=== PATIENT | female | born 1955 | race Caucasian/White ===

== ENCOUNTER → 2016-11-26 | Outpatient (CLI) | payer OTHER ==
--- NOTE | 2016-11-26 17:29 | REP ---
MR THORACIC SPINE WITHOUT AND WITH CONTRAST: HISTORY: Breast carcinoma. CONTRAST: ProHance 14.6 mL. A small left paracentral disc protrusion is present at the T6-7 level. There is minimal effacement of the thecal sac without spinal cord compression. The T6 neural foramina are patent. A small left paracentral disc protrusion is present at the T7-8 level. There is minimal effacement of the thecal sac without spinal cord compression. The T7 neural foramina are patent. There is no other disc bulge or herniation. The remaining neural foramina are patent. A small syrinx 1.6 cm in width is present in the spinal cord at the T6-7 level. The spinal cord is normal in size. Multiple areas of decreased signal intensity on T1 weighted images are present in the thoracic vertebral bodies and neural arch. There is minimal focal enhancement at the T6 and T9 levels. The vertebral bodies are normal in height. There is no paravertebral or epidural component. IMPRESSION: 1. Small disc protrusions at the T6-7 and T7-8 levels without spinal cord compression. 2. Small spinal cord syrinx at the T6-7 level. 3. There are multiple metastatic lesions throughout the thoracic vertebral bodies and neural arch. There is no spinal canal compromise. Signed by Daniel Lainez MD 11/26/2016 05:30 P
--- NOTE | 2016-11-26 17:46 | REP ---
MR LUMBAR SPINE WITHOUT AND WITH CONTRAST: HISTORY: Breast carcinoma. CONTRAST: ProHance 14.6 mL. COMPARISON: 02/01/2016 Decreased signal intensity on T2 weighted images is present in the lumbar intervertebral discs. The discs are decreased in height. These findings are consistent disc degeneration. There is no disc bulge or herniation at the L1-2 level. The L1 nerves exit the neural foramina without compression. A diffuse disc bulge is present at the L2-3 level. There is minimal compression of the thecal sac. The L2 nerves exit the neural foramina without compression. A diffuse disc bulge is present at the L3-4 level. There is minimal compression of the thecal sac. There is hypertrophy of the posterior articulating facets. The L3 nerves exit the neural foramina without compression. A diffuse disc bulge and small central disc protrusion are present at the L4-5 level. There is minimal compression of the thecal sac. There is hypertrophy of the posterior articulating facets. The L4 nerves exit the neural foramina without compression . A diffuse disc bulge is present at the L5-S1 level. This abuts the thecal sac. There is hypertrophy of the posterior articulating facets. There are 5 mm of grade 1 spondylolisthesis of L5 on S1 with associated L5 pars defects. There is compression of the L5 nerves in the neural foramina. The conus medullaris is normal in appearance terminating at the level of the L1 vertebral body. Areas of decreased signal intensity on T1 weighed images are present in the visualized thoracic and lumbar vertebral bodies, sacrum and iliac bones and neural arch. There is minimal enhancement of several lesions with contrast. These represent metastases. The vertebral bodies are normal in height. There is no paravertebral or epidural extension. IMPRESSION: 1. Diffuse disc bulges at the L2-3 and L3-4 levels with minimal thecal sac compression. 2. Diffuse disc bulge and small central disc protrusion at the L4-5 level with minimal thecal sac compression. 3. Diffuse disc bulge at the L5-S1 level. This abuts the thecal sac. There is grade 1 spondylolisthesis of L5 on S1 with associated L5 pars defects. There is compression of the L5 nerves in the neural foramina. 4. There are multiple metastatic lesions in the visualized thoracic and lumbar vertebral bodies, sacrum, iliac bones, and neural arch. There is no spinal canal compromise. Signed by Daniel Lainez MD 11/26/2016 06:07 Bibi
== END ==
LOC: M RAD 15:28
PROVIDERS: ATTEND Internal Medicine
DX: C50.919 Malignant neoplasm of unspecified site of unspecified female breast (principal); C79.51 Secondary malignant neoplasm of bone; M51.26 Other intervertebral disc displacement, lumbar region; M51.24 Other intervertebral disc displacement, thoracic region

== ENCOUNTER → 2017-01-07 | Outpatient (CLI) | payer OTHER ==
--- NOTE | 2017-01-07 11:16 | REP ---
CERVICAL SPINE, SEVEN VIEWS: HISTORY: Breast carcinoma. The cervical spine is visualized from C1-2 to C6-7 level in the lateral radiographs. There is no acute fracture. The C3-4 through C6-7 intervertebral discs are decreased in height consistent with disc degeneration. Osteophytes are present on C3 through C6. There is narrowing of the C3 through C6 neural foramina secondary to uncinate process hypertrophy. There are 3 mm of anterior subluxation of C3 on C4. This increased to 4 mm with flexion and returns to 3 mm with extension. The C4 and C5 vertebral bodies are slightly sclerotic in appearance. This may be secondary to degenerative change, however, the possibility of metastasis cannot be excluded. Impression: There is cervical spondylosis at the C3-4 through C6-7 levels. Signed by Daniel Lainez MD 01/07/2017 11:18 A
--- NOTE | 2017-01-07 11:22 | REP ---
LUMBAR SPINE, SEVEN VIEWS: HISTORY: Breast carcinoma. COMPARISON: 01/22/2016. There is no acute fracture. The L2-3 through L5-S1 intervertebral discs are decreased in height consistent with disc degeneration. Osteophytes are present at L2 through L5. There is narrowing of the L4-5 and L5-S1 facet joints. There are 6 mm of grade 1 spondylolisthesis of L5 on S1. This increases to 8 mm with flexion and reduces to 3 mm with extension. There appear to be L5 pars defects. Blastic metastases are present in the visualized vertebral bodies, sacrum and iliac bones. IMPRESSION: Degenerative change as described above. There are diffuse blastic metastases throughout the visualized bone structure. Signed by Daniel Lainez MD 01/07/2017 11:24 A
--- NOTE | 2017-01-07 18:49 | REP ---
[facility] the whole body PET CT scan: Scan is performed from skull base to the upper thighs. The patient has a history of breast carcinoma and known multiple skeletal metastases. Comparisons are the recent MRI of the thoracic spine and MRI of the lumbar spine both dated 11/26/2016. There are multiple lytic skeletal metastases, best visualized on the accompanying CT scan, involving the cervical spine, thoracic spine, lumbar spine, sacrum, iliac wings, ischii and proximal femurs. Additionally, there is focal uptake in an inferior right rib anteriorly and in an upper left rib laterally. In the spine, uptake is identified in multiple vertebral bodies, however this is not hypermetabolic. The absence of hypermetabolic foci may be secondary to marked bone mineral loss resulting in decreased radiotracer deposition. Neck and supraclavicular areas: There are no other foci other than the cervical spine. No soft tissue uptake. Chest: There are no other foci other than the previously described ribs and thoracic spine. There is no uptake in the lung sr, trini, mediastinum or in right or left axilla. Abdomen, pelvis and upper thighs: There is no r uptake other than in the lumbar spine, pelvis and proximal femurs. There is nonspecific bowel uptake. There is no retroperitoneal or mesenteric adenopathy or uptake. No hepatic or adrenal uptake. Impression: Diffuse skeletal metastases identified to best advantage on the CT accompanying the PET scan. No hypermetabolic foci are identified, likely because of bone loss secondary to the lytic lesions resulting in decreased radiotracer deposition. No lymph node or soft tissue hypermetabolic foci are identified. The study is performed with 8.7 mCi of F 18 FDG. Signed by Duc Rosa MD 01/07/2017 06:40 P
== END ==
LOC: M RAD 10:12
PROVIDERS: ATTEND Neurological Surgery
DX: C79.51 Secondary malignant neoplasm of bone (principal); M51.36 Other intervertebral disc degeneration, lumbar region; M47.892 Other spondylosis, cervical region; Z85.3 Personal history of malignant neoplasm of breast

== ENCOUNTER → 2017-01-29 | Outpatient (CLI) | payer OTHER ==
--- NOTE | 2017-02-13 00:28 | ECWPNPC ---
PATIENT NAME: DAYANA MARTINEZ : 1955 GENDER: FEMALE VISIT DATE: 01/29/2017 DISCHARGE DATE: 01/29/17 1253 VISIT LOCKED DATE TIME: PHYSICIAN: AMITA FULLER RESOURCE: AMITA FULLER REASON FOR APPOINTMENT 1. LOW BACK/PERIPHERAL NEUROPATHY HISTORY OF PRESENT ILLNESS NEW PATIENT CONSULT: WHEN DID YOUR PAIN FIRST START? . BRIEFLY DESCRIBE HOW YOUR PAIN STARTED? . HOW DOES YOUR PAIN CHANGE WITH TIME? . DOES YOUR PAIN AWAKEN YOU FROM SLEEP? . HOW MANY HOURS OF SLEEP DO YOU NORMALLY GET? . ANY DIAGNOSTIC TESTING? . FACILITY WHERE TESTS WERE DONE? ____. PAIN TREATMENT TREATMENT YES CANCER HAVE YOU EVER HAD ANY TYPE OF CANCER?YES BREAST WITH BONE METS CANCER TREATMENT?CHEMOTHERAPY, SURGERY NO. PAIN SCREENING: PATIENT HAS A COMPLAINT OF ACUTE OR CHRONIC PAIN :YES FALL RISK SCREENING: SCREENING :NO FALLS IN THE PAST YEAR ZAMBRANO INVENTORY: QUESTIONNAIRE ASSESSEDYES SCORE VALUE CALCULATED YES SCORE: DENIES SUICIDAL OR HOMICIDAL IDEATION. DOES NOTE SOME SITUATIONAL DEPRESSION TODAY'S VISIT: NOTES: REFERRED TODAY BY DR ALLEN FOR LOW BACK PAIN. NOTES AFTER 5 MIN OF WALKING NOTES SHARP BURNING PAIN IN LOWBACK WITH RADIATION ACROSS TO RIGHT HIP AND LEG. IF STANDS TOO LONG, FEET GOES NUMB R>L. HAD SPREAD OF BREAST CANCER TO BONE - 2003 - HAS BEEN ON CHEMO , SEE DR ESPINOZA AT [facility]. 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 K DID AN SIJ WITH IMPROVEMENT FOR 1 DAY. HAD PT 2014 - MADE WORSE. HEATS HELPS. SLEEP IS FAIR WITH PAIN MEDS. MEDS TAKE EDGE OFF WHEN ITS AT ITS WORST. CURRENT MEDICATIONS TAKING CALCIUM + D [address]719 MG-UNIT TABLET 1 TABLET WITH FOOD ORALLY ONCE A DAY TAKING SYMBICORT 80-4.5 MCG/ACT AEROSOL 2 PUFFS INHALATION TWICE A DAY TAKING HYDROCODONE-ACETAMINOPHEN 7.5-325 MG TABLET 1 TABLET NEEDED ORALLY EVERY 6 HRS TAKING BLOOD PRESSURE MONITOR - MISCELLANEOUS DIRECTED ONCE DAILY TAKING WHEELCHAIR - MISCELLANEOUS DIRECTED DX- BACK PAIN/HIP PAIN/METASTATIC BREAST CANCER TAKING VENTOLIN HFA 108 (90 BASE) MCG/ACT AEROSOL SOLUTION 2 PUFFS NEEDED INHALATION EVERY 4 HRS TAKING MELOXICAM 15 MG TABLET 1 TABLET ORALLY ONCE A DAY TAKING OMEPRAZOLE 40 MG CAPSULE DELAYED RELEASE 1 CAPSULE ORALLY ONCE A DAY TAKING DULOXETINE HCL 30 MG CAPSULE DELAYED RELEASE PARTICLES 1 CAPSULE ORALLY TWICE A DAY TAKING BIOTIN 5000 5 MG CAPSULE 1 CAPSULE ORALLY ONCE A DAY TAKING GABAPENTIN 300 MG CAPSULE 1 CAPSULE ORALLY THREE TIMES A DAY TAKING ECHINACEA 400 MG CAPSULE ORALLY TAKING XELODA 500 MG TABLET ORALLY BID NOT-TAKING PREMARIN 0.625 MG TABLET 1 TABLET ORALLY DAILY NOT-TAKING MORPHINE SULFATE 30 MG TABLET EXTENDED RELEASE 12 HOUR 1 TABLET NEEDED ORALLY TWICE A DAY NEEDED NOT-TAKING AMLODIPINE 10 MG TABLET 1/2 TAB ORALLY ONCE A DAY NOT-TAKING METHOCARBAMOL 500 MG TABLET 2 TABLETS ORALLY EVERY 6HRS/PRN NOT-TAKING NORTRIPTYLINE HCL 25 MG CAPSULE 2 CAPSULE ORALLY ONCE A DAY QHS NOT-TAKING MULTIVITAMINS TABLET DIRECTED ORALLY NOT-TAKING VITAMIN C 500 MG CAPSULE ORALLY NOT-TAKING VITAMIN E 400 UNIT CAPSULE 1 CAPSULE ORALLY ONCE A DAY MEDICATION LIST REVIEWED AND RECONCILED WITH THE PATIENT PAST MEDICAL HISTORY HTN BREAST CANCER OVARIAN CYSTS ASTHMA HYPERLIPIDEMIA MULTINODULAR GOITER ALLERGIES LATEX (FOR ALLERGY USE ONLY): RASH: ALLERGY SURGICAL HISTORY HYSTERECTOMY 1976 BILATERAL MASTECTOMY 2003 BILATERAL OVERY REMOVAL 2004 FAMILY HISTORY FATHER: 64 YRS, PROSTATE CANCER MOTHER: ALIVE, HEALTHY SIBLINGS: BROTHER # 1 DUE TO BRAIN CANCER AGE 53 BROTHER # 2 LIVING AGE 63, BERRETS DISEASE SISTER # 1 AGE 42 DUE TO LIVER FAILURE SISTER # 2 LIVING HEALTHY SON(S): ALIVE DAUGHTER(S): 36 YRS, DUE TO COLON CANCER AGE 36 PATERNAL UNCLE: 3 UNCLES WITH PROSTATE CANCER PATERNAL AUNT: 2 AUNTS WITH BREAST CANCER MATERNAL UNCLE: DUE TO CANCER UNKNOWN TYPE 2 BROTHER(S) , 2 SISTER(S) . 1 SON(S) , 1 DAUGHTER(S) . SOCIAL HISTORY GENERAL: TOBACCO USE ARE YOU A:NONSMOKER PAIN CLINIC PFS, CLERGY, PUBLIC HEALTH REFERRALS CLERGY REFERRAL NEEDED?NO WAS THE PROVIDER NOTIFIED OF ANY PERTINENT INFO?NO PFS REFERRAL NEEDED?NO PUBLIC HEALTH REFERRAL NEEDED?NO PATIENT: ____. HOSPITALIZATION/MAJOR DIAGNOSTIC PROCEDURE SURGICALY RELATED REVIEW OF SYSTEMS CONSTITUTIONAL: ANY CHANGE IN YOUR MEDICAL CONDITION? NO . CHILLS NO . FEVER NO . INFECTION: DO YOU HAVE NEW INFECTIONS? NO - RECENT STREP THROAT TX W ABX . DO YOU HAVE HISTORY OF MRSA? NO . MUSCULOSKELETAL: ANY NEW PATTERNS OF PAIN OR NUMBNESS? NO . SYTEMIC LUPUS NO . GASTROENTEROLOGY: ANY NEW CHANGE IN BOWEL CONTROL? NO . BARRETTS ESOPHAGUS NO . CIRRHOSIS NO . HEPATITIS NO . LIVER FAILURE NO . ACID REFLUX NO . UNEXPLAINED WEIGHT LOSS NO . GENITOURINARY: ANY NEW CHANGE IN BLADDER CONTROL? NO . IS THERE A CHANCE YOU COULD BE ? NO . HEMATOLOGY/LYMPH: DO YOU TAKE ANY BLOOD THINNERS? (FOR EXAMPLE- COUMADIN, PLAVIX, AGGRENOX, PLATEL, PRADAXA, OR XARELTO) NO . WHEN WAS YOUR LAST DOSE? DATE: TIME: . LOW PLATELET COUNT NO . SICKLE CELL DISEASE NO . VON WILLIEBRANDS NO . FACTOR V LEIDEN NO . THALLASEMIA NO . ANEMIA NO . EASY BRUISING YES - UNCLEAR REASON . NEUROLOGY: HAVE YOU FALLEN IN THE PAST 6 MONTHS? NO . ANY NEW EXTREMITY NUMBNESS OR WEAKNESS? NO . HEAD INJURY NO . DEMENTIA NO . CEREBRAL PALSY NO . MULTIPLE SCLEROSIS NO . DIZZINESS NO . HEADACHE NO . STROKES NO . VERTIGO NO . CARDIOLOGY: DO YOU HAVE A PACEMAKER OR DEFIBRILLATOR? NO . ANGINA NO . HEART ATTACK NO . HEART SURGERY NO . CONGESTIVE HEART FAILURE/FLUID OVERLOAD NO . CHEST PAIN NO . HIGH BLOOD PRESSURE NO . IRREGULAR HEART BEAT NO . RESPIRATORY: HAVE YOU BEEN SICK IN THE PAST WEEK? NO . FEVER NO . FLU LIKE SYMPTOMS? NO . CPAP NO . BYPAP NO . ASTHMA NO . EMPHYSEMA NO . CHRONIC LUNG DISEASES YES . SHORTNESS OF BREATH ON EXERTION NO . DO YOU USE ANY TYPE OF TOBACCO (SMOKE, SMOKELESS, CHEW)? NO . COUGH NO . SNORING NO . INTEGUMENTARY: DO YOU HAVE ANY RASHES OR OPEN SORES? NO . ALLERGIC/IMMUNO: ARE YOU ALLERGIC TO SHELLFISH OR IV DYE? NO . ANY NEW ALLERGIES? NO . PSYCHIATRIC: DO YOU HAVE THOUGHTS OF HURTING YOURSELF OR SOMEONE ELSE? NO . ARE YOU ABUSED, NEGLECTED, OR IN AN UNSAFE ENVIRONMENT? NO . ENDOCRINOLOGY: ARE YOU DIABETIC? NO . THYROID DISORDER YES - SAW DR Asif SANCHEZ FOR NODULES, NO MEDS . OTHER: DO YOU NEED ANY PRESCRIPTIONS? NO . IF YES, PLEASE LIST: ____ . ANY NEW PROBLEMS WITH YOUR MEDICATIONS? NO . WHEN DID YOU LAST EAT? ____ . WHEN DID YOU LAST DRINK? ____ . WHAT DID YOU LAST DRINK? ____ . NAME OF PERSON DRIVING YOU HOME? ____ . DO YOU HAVE ANY OTHER QUESTIONS OR CONCERNS NO . PSYCHOLOGY: DEPRESSION SITUATIONAL DEPRESSION BUT REPORTS POSITIVE ATTITUDE . REVIEWED BY: PROVIDER: AMITA ZAMAN . VITAL SIGNS WT 164 LBS, HT 5'5.5", BMI 26.87 INDEX, BP 138/71 MM HG, HR 108 /MIN, RR 18 /MIN, TEMP 99.2 F, OXYGEN SAT % 94%, NA INITIALS AW 1128, REVIEWED BY: KG. EXAMINATION GENERAL EXAMINATION: GENERAL APPEARANCE:WELL DRESSED, PLEASANT TO INTERACT WITH. USES WHEELCHAIR BUT IS ABLE TO WALK TO THE BATHROOM. PSYCHALERT , ORIENTED X 3 , APPROPRIATE MOOD AND AFFECT , GOOD EYE CONTACT. HEENT:NORMOCEPHALIC, NEW RETURN OF FACIAL AND SCALP HAIR POST CHEMO. NO LYMPHADENOPATHY, NO THYROMEGLY. LUNGS:BREATH SOUNDS CLEAR, NO WHEEZES, RALES OR RHONCHI. HEART:NO CAROTID BRUITS, NORMAL S1S2, NO MURMURS, CLICK OR RUBS. MUSCULOSKELETAL:SLOW TO RISE TO STANDING POSITION. POSTURE UPRIGHT.GAIT, WIDEBASED, STEPPING IN NATURE. POINT TENDERNESS OVER LUMBAR SPINOUS PROCESSES AND ACROSS THE LUMBOSACRAL AXIS. , TRIGGER POINTS AND TIGHT FIBROUS BANDS IDENTIFIED ACROSS THE SACRUM. TENDER WITH PALPATION OVER LEFT SACRAL ILIAC JOINT. POSITIVE FANNIE SIGN ON LEFT. , MUSCLE STRENGTH TESTING 5/5 BILATERAL UPPER AND LOWER EXTREMITIES. NO FOOT DROP. . EXTREMITIES:TRACE EDEMA BILATERAL LOWER EXTREMITIES.. NEUROLOGIC EXAM:CN'S II-XII GROSSLY INTACT DTR'S 1+ BILATERAL UPPER AND LOWER EXTREMITES. PATCHY DYSESTHESIA OVER BILATERAL LOWWER EXTREMITIES. DIAGNOSTIC TESTS REVIEWEDPET SCAN -WHOLE BODY- COMPLETED 01/07/17. DEMOSTRATES DIFFUSE SKELETAL METASRASES IDENTIFIED TO BEST ADVANTAGE ON THE CT ACCOMPANYING THE PET SCAN. NO HYPERMETABOLIC FOCI ARE IDENTIFIED, LIKELY BECAUSE OF BONE LOSS SECONDARY TO THE LYTIC LESIONS RESULTING IN DECREASED RADIOTRACER DEPOSITION. NO LYMPH NODE OR HYPERMETABOLIC FOCI ARE IDENTIFIED. CT OF LUMBAR SPINE WAS COMPLETED ON 01/07/17. DEGENERATIVE CHANES NOTES L2-3 THROUGH L5-S1 WITH OSTEOPHYTES PRESENT AT L2 THROUGH L5. THERE IS 6 MM OF SPONDYLITHESIS OF L5 ON S1. THERE APEAR TO BE PARS DEFECTS.. BLASTIC METASTASES ARE PRESENT IN THE VISUALIZED VERTEBRAL BODIES, SACRUM AND ILIAC BONES.CERVICAL SPINE XRAYS COMPLETED ON 01/07/17: CERVICAL SPONDYLOSIS C3-4 THROUGH C6-7. THERE IS 3 MM OF ANTERIOR SUBLUXATION OF C3 ON C4.. 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 REVIEWED TREATMENT OPTION WITH THE PATIENT - DID DISCUSS WITH HER THAT INTERVENTIONAL TREATMENT WHICH ACCESS THE EPIDURAL SPACE WOULD NOT BE PURSUED DUE TO FEAR OF "SEEDING" CANCEROUS CELLS TO THIS REGION. PROCEDURE CODES FA211 ESTABILISHED PATIENT [facility] CHARGE [id number] INJECT SACROILIAC JOINT DISPOSITION & COMMUNICATION FOLLOW UP AFTER INJECTION (REASON: CHECK AUTH FOR BILAT SIJ - NEED OK TO DO INJECTIONS FROM DR ESPINOZA AT [facility] ) ELECTRONICALLY SIGNED BY AGGIE NELSON ON 02/12/2017 AT 04:13 PM EDT DISCLAIMER : THIS IS A VISIT SUMMARY EXTRACTED FROM THE [facility] CHART. IT IS NOT A COPY OF THE [facility] PROGRESS NOTE. VARGAS
== END ==
LOC: M PAIN 11:20
PROVIDERS: ATTEND Nurse Practitioner Family
DX: M54.5 Low back pain (principal); M46.1 Sacroiliitis, not elsewhere classified; M47.26 Other spondylosis with radiculopathy, lumbar region; I10 Essential (primary) hypertension; J45.909 Unspecified asthma, uncomplicated; Z91.040 Latex allergy status; Z79.891 Long term (current) use of opiate analgesic; Z79.899 Other long term (current) drug therapy; E78.5 Hyperlipidemia, unspecified; Z85.3 Personal history of malignant neoplasm of breast; Z92.21 Personal history of antineoplastic chemotherapy

== ENCOUNTER → 2017-03-20 | Outpatient (CLI) | payer OTHER ==
[~2017-03-20] MED LIST: BUPIVACAINE HCL 0.25% 30 ML VIAL As Ordered ONE; ISOVUE-M 300 61% 15ML VIAL (Q9967) As Ordered ONE; LIDOCAINE 1% SDV INJ 30 ML VIAL As Ordered ONE; TRIAMCINOLONE ACETONIDE SUSP 40 MG/ML VIAL (J3301) As Ordered ONE; diazePAM 5 MG TAB As Ordered ONE; oxyCODONE 5MG TAB As Ordered ONE
--- NOTE | 2017-03-20 15:28 | REP ---
Partial SI joint series: Single view. History: SI joint injection for pain. 23 seconds of fluoroscopy time is reported. Findings: A single fluoroscopically obtained last image hold spot radiograph of an SI joint document needle position and contrast injection associated with injection procedure. No laterality markers. Signed by Aneesh Belcher MD 03/20/2017 04:28 P
--- NOTE | 2017-03-29 23:46 | ECWPNPC ---
PATIENT NAME: DAYANA MARTINEZ : 1955 GENDER: FEMALE VISIT DATE: 03/20/2017 DISCHARGE DATE: 03/20/17 1511 VISIT LOCKED DATE TIME: PHYSICIAN: CHRISTIANO BRIONES RESOURCE: CHRISTIANO BRIONES REASON FOR APPOINTMENT 1. SIJ HISTORY OF PRESENT ILLNESS HISTORY OF PRESENT ILLNESS: PAIN THE PATIENT DESCRIBES THE PAIN... FALL RISK SCREENING: SCREENING :NO FALLS IN THE PAST YEAR CURRENT MEDICATIONS TAKING CALCIUM + D 02055-781 MG-UNIT TABLET 1 TABLET WITH FOOD ORALLY ONCE A DAY, NOTES: 03/19/17@1400 TAKING SYMBICORT 80-4.5 MCG/ACT AEROSOL 2 PUFFS INHALATION TWICE A DAY, NOTES: HASN'T USED IN AWHILE TAKING HYDROCODONE-ACETAMINOPHEN 7.5-325 MG TABLET 1 TABLET NEEDED ORALLY EVERY 6 HRS, NOTES: 0600 TAKING BLOOD PRESSURE MONITOR - MISCELLANEOUS DIRECTED ONCE DAILY TAKING WHEELCHAIR - MISCELLANEOUS DIRECTED DX- BACK PAIN/HIP PAIN/METASTATIC BREAST CANCER TAKING VENTOLIN HFA 108 (90 BASE) MCG/ACT AEROSOL SOLUTION 2 PUFFS NEEDED INHALATION EVERY 4 HRS, NOTES: HASN'T USED IN AWHILE TAKING DULOXETINE HCL 30 MG CAPSULE DELAYED RELEASE PARTICLES 1 CAPSULE ORALLY TWICE A DAY, NOTES: 0600 TAKING BIOTIN 5000 5 MG CAPSULE 1 CAPSULE ORALLY ONCE A DAY, NOTES: 0600 TAKING GABAPENTIN 300 MG CAPSULE 1 CAPSULE ORALLY THREE TIMES A DAY, NOTES: 0600 TAKING ECHINACEA 400 MG CAPSULE ORALLY , NOTES: 03/19/17@2000 TAKING XELODA 500 MG TABLET ORALLY BID, NOTES: 0600 TAKING OMEPRAZOLE 40 MG CAPSULE DELAYED RELEASE 1 CAPSULE ORALLY ONCE A DAY, NOTES: 0600 TAKING MELOXICAM 15 MG TABLET 1 TABLET ORALLY ONCE A DAY, NOTES: 0600 NOT-TAKING PREMARIN 0.625 MG TABLET 1 TABLET ORALLY DAILY NOT-TAKING MORPHINE SULFATE 30 MG TABLET EXTENDED RELEASE 12 HOUR 1 TABLET NEEDED ORALLY TWICE A DAY NEEDED NOT-TAKING AMLODIPINE 10 MG TABLET 1/2 TAB ORALLY ONCE A DAY NOT-TAKING METHOCARBAMOL 500 MG TABLET 2 TABLETS ORALLY EVERY 6HRS/PRN NOT-TAKING NORTRIPTYLINE HCL 25 MG CAPSULE 2 CAPSULE ORALLY ONCE A DAY QHS NOT-TAKING MULTIVITAMINS TABLET DIRECTED ORALLY NOT-TAKING VITAMIN C 500 MG CAPSULE ORALLY NOT-TAKING VITAMIN E 400 UNIT CAPSULE 1 CAPSULE ORALLY ONCE A DAY MEDICATION LIST REVIEWED AND RECONCILED WITH THE PATIENT PAST MEDICAL HISTORY HTN BREAST CANCER OVARIAN CYSTS ASTHMA HYPERLIPIDEMIA MULTINODULAR GOITER ALLERGIES LATEX (FOR ALLERGY USE ONLY): RASH: ALLERGY REVIEW OF SYSTEMS CONSTITUTIONAL: ANY CHANGE IN YOUR MEDICAL CONDITION? NO . CHILLS NO . FEVER NO . INFECTION: DO YOU HAVE NEW INFECTIONS? NO . DO YOU HAVE HISTORY OF MRSA? NO . MUSCULOSKELETAL: ANY NEW PATTERNS OF PAIN OR NUMBNESS? NO . GASTROENTEROLOGY: ANY NEW CHANGE IN BOWEL CONTROL? NO . GENITOURINARY: ANY NEW CHANGE IN BLADDER CONTROL? NO . IS THERE A CHANCE YOU COULD BE ? NO . HEMATOLOGY/LYMPH: DO YOU TAKE ANY BLOOD THINNERS? (FOR EXAMPLE- COUMADIN, PLAVIX, AGGRENOX, PLATEL, PRADAXA, OR XARELTO) NO . WHEN WAS YOUR LAST DOSE? DATE: TIME: . NEUROLOGY: HAVE YOU FALLEN IN THE PAST 6 MONTHS? NO . ANY NEW EXTREMITY NUMBNESS OR WEAKNESS? NO . CARDIOLOGY: DO YOU HAVE A PACEMAKER OR DEFIBRILLATOR? NO . RESPIRATORY: HAVE YOU BEEN SICK IN THE PAST WEEK? NO . FEVER NO . FLU LIKE SYMPTOMS? NO . COUGH NO . INTEGUMENTARY: DO YOU HAVE ANY RASHES OR OPEN SORES? NO . ALLERGIC/IMMUNO: ARE YOU ALLERGIC TO SHELLFISH OR IV DYE? NO . ANY NEW ALLERGIES? NO . PSYCHIATRIC: DO YOU HAVE THOUGHTS OF HURTING YOURSELF OR SOMEONE ELSE? NO . ARE YOU ABUSED, NEGLECTED, OR IN AN UNSAFE ENVIRONMENT? NO . ENDOCRINOLOGY: ARE YOU DIABETIC? NO . OTHER: DO YOU NEED ANY PRESCRIPTIONS? NO . IF YES, PLEASE LIST: ____ . ANY NEW PROBLEMS WITH YOUR MEDICATIONS? NO . WHEN DID YOU LAST EAT? ____0600 . WHEN DID YOU LAST DRINK? ____1000 . WHAT DID YOU LAST DRINK? ____WATER . NAME OF PERSON DRIVING YOU HOME? ____TIM RASO . DO YOU HAVE ANY OTHER QUESTIONS OR CONCERNS NO . REVIEWED BY: PROVIDER: . VITAL SIGNS WT 172.0 LBS, HT 5'5.5", BMI 28.18 INDEX, BP 132/67 MM HG, HR 96 /MIN, RR 16 /MIN, TEMP 97.4 F, OXYGEN SAT % 96%, NA INITIALS TL 1327, REVIEWED BY: VD. ASSESSMENTS SACROILIITIS, NOT ELSEWHERE CLASSIFIED - M46.1 (PRIMARY) PROCEDURES PN SI PRE PROCEDURE DIAGNOSIS SACROILIITIS, SACROILIAC JOINT DYSFUNCTION POST PROCEDURE DIAGNOSIS SACROILIITIS, SACROILIAC JOINT DYSFUNCTION PROCEDURE RIGHT SACROILIAC JOINT BLOCK SURGEON DR. CHRISTIANO BRIONES INSTRUMENT DESIGNER NONE ANESTHESIA LOCAL PRE PROCEDURE NOTE PATIENT WITH HISTORY OF CHRONIC LOW BACK PAIN. I EVALUATED THE PATIENT AND REVIEWED THE CHART. I WENT OVER THE RISKS, ALTERNATIVES, AND BENEFITS ASSOCIATED WITH THIS PROCEDURE. THE PATIENT WOULD LIKE TO PROCEED AND GAVE CONSENT TO PERFORM THE PROCEDURE. THE PATIENT DENIES UNEXPLAINABLE WEIGHT LOSS, FEVER, CHILLS, OR NEW CHANGES IN URINARY OR BOWEL CONTROL DESCRIPTION OF PROCEDURE THE PATIENT WAS BROUGHT TO THE PROCEDURE ROOM AND PLACED IN THE PRONE POSITION. THE LUMBOSACRAL AREA WAS CLEANED WITH CHLORAPREP SOLUTION AND DRAPED ASEPTICALLY. THE PROCEDURE WAS DONE UNDER STERILE CONDITIONS. I CHECKED LATERALITY AND THE LEVEL WHERE THE PROCEDURE WAS GOING TO BE PERFORMED WITH THE PATIENT AND THE SUPPORTING STAFF AT THE MOMENT OF THE TIME OUT IN THE PROCEDURE ROOM. UNDER FLUOROSCOPIC GUIDANCE, TARGET POINT WAS SELECTED AT THE LOWER BORDER OF THE RIGHT SACROILIAC JOINT. TARGET POINT WAS SELECTED AFTER MEDIAL ROTATION AND TILT OF THE MAGNIFIER OF THE C-ARM. LIDOCAINE WAS USED TO NUMB THE SKIN AND SUBCUTANEOUS TISSUE BELOW IT. A SPINAL NEEDLE, 22-GAUGE, WAS ADVANCED UNDER FLUOROSCOPIC GUIDANCE AND FOLLOWING PATIENT FEEDBACK UNTIL THE TARGET AREA WAS TOUCHED. THE POSITION OF THE NEEDLE WAS VERIFIED WITH AP AND LATERAL VIEWS. AFTER PROPER POSITION OF THE NEEDLE WAS ACHIEVED, ISOVUE M DYE 30%, 0.25 ML, WAS INJECTED SHOWING SPREAD OF THE DYE. THEN, A SOLUTION OF 20 MG OF KENALOG WAS INJECTED IN RIGHT JOINT WITH 3 ML OF BUPIVACAINE 0.125%. THERE WAS NO EVIDENCE OF BLOOD, PARESTHESIA OR CEREBROSPINAL FLUID DURING THE PROCEDURE. THE PATIENT WAS SENT TO THE RECOVERY ROOM. THE PATIENT WAS MOVING THE EXTREMITIES AND DOING WELL. THERE WAS NO COMPLICATION DURING THE PROCEDURE. FLUOROSCOPY TIME WAS 23 SECONDS POST PROCEDURE NOTE THE PATIENT WILL BE SEEN IN A FOLLOW UP IN THE NEXT FEW WEEKS. INSTRUCTIONS WERE GIVEN, QUESTIONS WERE ANSWERED, AND THE PATIENT EXPRESSED UNDERSTANDING AND AGREED WITH THE PLAN. I, WILTON MONTIEL, DOCUMENTED THE ABOVE INFORMATION ACTING A SCRIBE FOR DR. BRIONES. I HAVE REVIEWED THE ABOVE DOCUMENT, WRITTEN BY WILTON MONTIEL SCRIBBernard AND I VERIFY THAT IT IS [facility] FLUORO GUIDANCE (PAIN)[id number] PROCEDURE CODES 17072 INJECT SACROILIAC JOINT 6045F RADXPS IN END [id number] PXD DISPOSITION & COMMUNICATION FOLLOW UP 3 WEEKS ELECTRONICALLY SIGNED BY CHRISTIANO BRIONES MD ON 03/29/2017 AT 03:30 PM EDT DISCLAIMER : THIS IS A VISIT SUMMARY EXTRACTED FROM THE [employer] CHART. IT IS NOT A COPY OF THE [employer] PROGRESS NOTE. MTDD
== END ==
LOC: M PAIN 13:20
PROVIDERS: ATTEND Anesthesiology
DX: G89.29 Other chronic pain (principal); M46.1 Sacroiliitis, not elsewhere classified; M53.88 Other specified dorsopathies, sacral and sacrococcygeal region; I10 Essential (primary) hypertension; J45.909 Unspecified asthma, uncomplicated; E78.5 Hyperlipidemia, unspecified; Z91.040 Latex allergy status; Z79.899 Other long term (current) drug therapy

== ENCOUNTER → 2017-04-10 | Outpatient (CLI) | payer OTHER ==
--- NOTE | 2017-04-22 01:03 | ECWPNPC ---
PATIENT NAME: DAYANA MARTINEZ : 1955 GENDER: FEMALE VISIT DATE: 04/10/2017 DISCHARGE DATE: 04/10/17 1125 VISIT LOCKED DATE TIME: PHYSICIAN: AMITA FULLER RESOURCE: AMITA FULLER REASON FOR APPOINTMENT 1. POST PROCEDURE HISTORY OF PRESENT ILLNESS HISTORY OF PRESENT ILLNESS: PAIN THE PATIENT DESCRIBES THE PAIN... FALL RISK SCREENING: SCREENING :NO FALLS IN THE PAST YEAR TODAY'S VISIT: NOTES: S/P RIGHT SIJ COMPLETED ON 03/20/17. NOTED PAIN LEVEL 7/10 BOTH PRIOR TO AND AFTER INJECTION. PAIN BRIEFLY DECREASED TO 2/10. ABUT IS NOW RADIATING MORE ACROSS THE HIPS AND INTO THE LATERAL RIGHT THIGH. HAVING NUMBNESS AND TINGLING IN RIGHT LEG TO FOOT. HARD TO WALK OR STAND. RATES PAIN LEVEL TODAY 7/10. DESCRIBES PAIN ACHING, BURNING, SHARP AND STABBING WITH SHOOTING PAIN ACROSS THE BACK.. CURRENT MEDICATIONS TAKING CALCIUM + D 88131-438 MG-UNIT TABLET 1 TABLET WITH FOOD ORALLY ONCE A DAY TAKING SYMBICORT 80-4.5 MCG/ACT AEROSOL 2 PUFFS INHALATION TWICE A DAY TAKING HYDROCODONE-ACETAMINOPHEN 7.5-325 MG TABLET 1-2 TABLET NEEDED ORALLY EVERY 6 HRS TAKING BLOOD PRESSURE MONITOR - MISCELLANEOUS DIRECTED ONCE DAILY TAKING WHEELCHAIR - MISCELLANEOUS DIRECTED DX- BACK PAIN/HIP PAIN/METASTATIC BREAST CANCER TAKING VENTOLIN HFA 108 (90 BASE) MCG/ACT AEROSOL SOLUTION 2 PUFFS NEEDED INHALATION EVERY 4 HRS TAKING DULOXETINE HCL 30 MG CAPSULE DELAYED RELEASE PARTICLES 1 CAPSULE ORALLY TWICE A DAY TAKING BIOTIN 5000 5 MG CAPSULE 1 CAPSULE ORALLY ONCE A DAY TAKING GABAPENTIN 300 MG CAPSULE 1 CAPSULE ORALLY THREE TIMES A DAY TAKING ECHINACEA 400 MG CAPSULE ORALLY DAILY TAKING XELODA 500 MG TABLET ORALLY BID TAKING OMEPRAZOLE 40 MG CAPSULE DELAYED RELEASE 1 CAPSULE ORALLY ONCE A DAY TAKING MELOXICAM 15 MG TABLET 1 TABLET ORALLY ONCE A DAY NOT-TAKING PREMARIN 0.625 MG TABLET 1 TABLET ORALLY DAILY NOT-TAKING MORPHINE SULFATE 30 MG TABLET EXTENDED RELEASE 12 HOUR 1 TABLET NEEDED ORALLY TWICE A DAY NEEDED NOT-TAKING AMLODIPINE 10 MG TABLET 1/2 TAB ORALLY ONCE A DAY NOT-TAKING METHOCARBAMOL 500 MG TABLET 2 TABLETS ORALLY EVERY 6HRS/PRN NOT-TAKING NORTRIPTYLINE HCL 25 MG CAPSULE 2 CAPSULE ORALLY ONCE A DAY QHS NOT-TAKING MULTIVITAMINS TABLET DIRECTED ORALLY NOT-TAKING VITAMIN C 500 MG CAPSULE ORALLY NOT-TAKING VITAMIN E 400 UNIT CAPSULE 1 CAPSULE ORALLY ONCE A DAY MEDICATION LIST REVIEWED AND RECONCILED WITH THE PATIENT PAST MEDICAL HISTORY HTN BREAST CANCER OVARIAN CYSTS ASTHMA HYPERLIPIDEMIA MULTINODULAR GOITER ALLERGIES LATEX (FOR ALLERGY USE ONLY): RASH: ALLERGY SOCIAL HISTORY GENERAL: TOBACCO USE ARE YOU A:NONSMOKER ORTHODOX [id number] [facility] PFS, CLERGY, PUBLIC HEALTH REFERRALS PFS REFERRAL NEEDED?NO CLERGY REFERRAL NEEDED?NO PUBLIC HEALTH REFERRAL NEEDED?NO WAS THE PROVIDER NOTIFIED OF ANY PERTINENT INFO?NO HAS THE PATIENT BEEN EDUCATED REGARDING HIS/HER PLAN OF CARE?YES HAS THE PATIENT BEEN EDUCATED REGARDING PAIN, THE RISK FOR PAIN, THE IMPORTANCE OF EFFECTIVE PAIN MANAGEMENT, AND THE PAIN ASSESSMENT PROCESS?YES PATIENT: ____. REVIEW OF SYSTEMS REVIEWED BY: PROVIDER: AMITA ZAMAN . CONSTITUTIONAL: ANY CHANGE IN YOUR MEDICAL CONDITION? NO . CHILLS NO . FEVER NO . INFECTION: DO YOU HAVE NEW INFECTIONS? NO . DO YOU HAVE HISTORY OF MRSA? NO . MUSCULOSKELETAL: ANY NEW PATTERNS OF PAIN OR NUMBNESS? NOTED ABOVE. . GASTROENTEROLOGY: ANY NEW CHANGE IN BOWEL CONTROL? NO . GENITOURINARY: ANY NEW CHANGE IN BLADDER CONTROL? NO . IS THERE A CHANCE YOU COULD BE ? NO . HEMATOLOGY/LYMPH: DO YOU TAKE ANY BLOOD THINNERS? (FOR EXAMPLE- COUMADIN, PLAVIX, AGGRENOX, PLATEL, PRADAXA, OR XARELTO) NO . WHEN WAS YOUR LAST DOSE? DATE: TIME: . NEUROLOGY: HAVE YOU FALLEN IN THE PAST 6 MONTHS? NO . ANY NEW EXTREMITY NUMBNESS OR WEAKNESS? NO . CARDIOLOGY: DO YOU HAVE A PACEMAKER OR DEFIBRILLATOR? NO . CHEST PAIN PATIENT DENIES . RESPIRATORY: HAVE YOU BEEN SICK IN THE PAST WEEK? NO . FEVER NO . FLU LIKE SYMPTOMS? NO . SHORTNESS OF BREATH ON EXERTION YES . COUGH NO . INTEGUMENTARY: DO YOU HAVE ANY RASHES OR OPEN SORES? NO . ALLERGIC/IMMUNO: ARE YOU ALLERGIC TO SHELLFISH OR IV DYE? NO . ANY NEW ALLERGIES? NO . PSYCHIATRIC: DO YOU HAVE THOUGHTS OF HURTING YOURSELF OR SOMEONE ELSE? NO . ARE YOU ABUSED, NEGLECTED, OR IN AN UNSAFE ENVIRONMENT? NO . ENDOCRINOLOGY: ARE YOU DIABETIC? NO . OTHER: DO YOU NEED ANY PRESCRIPTIONS? NO . IF YES, PLEASE LIST: ____ . ANY NEW PROBLEMS WITH YOUR MEDICATIONS? NO . WHEN DID YOU LAST EAT? ____ . WHEN DID YOU LAST DRINK? ____ . WHAT DID YOU LAST DRINK? ____ . NAME OF PERSON DRIVING YOU HOME? ____ . DO YOU HAVE ANY OTHER QUESTIONS OR CONCERNS NO . VITAL SIGNS WT 171.2 LBS, HT 5'5.5", BMI 28.05 INDEX, BP 144/67 MM HG, HR 105 /MIN, RR 16 /MIN, TEMP 97.9 F, OXYGEN SAT % 96%, NA INITIALS AW 1032, REVIEWED BY: CS. EXAMINATION GENERAL EXAMINATION: PSYCHALERT , ORIENTED X 3 , APPEARS UNCOMFORTABLE. LUNGS:CLEAR TO AUSCULTATION BILATERALLY. HEART:HEART RATE REGULAR. MUSCULOSKELETAL:POINT TENDERNESS WITH PALPATION OVER LUMBAR SPINOUS PROCESSES AND ACROSS LUMOSACRAL AXIS. TRIGGER POINTS AND TIGHT FIBROUS BANDS IDENTIFIED ACROSS THE SACRUM. SOME WEAKNESS NOTEED WITH RIGHT QUADRICEP FLEXION. NO FOOT DROP NOTED. SLW TO RISE TO SYANDING POSITION. POSTURE STOOPED. GAIT WIDEBASED AND SLOW.. DIAGNOSTIC TESTS REVIEWEDNUCLEAR MED BONE SCAN 04/07/17, XRAY OF LUMBAR SPINE 01/07/17 AND MRI OF LUMBAR SPINE 02/01/16 REVIEWED AND DISCUSSED WITH PATIENT. 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 HAS PARS DEFECT AT L5 RIGHT AMITA FULLER 04/10/2017 11:10:29 AM > RIGHT THERAPEUTIC LUMBAR FACET BLOCK AT L4-5, L5-S1. HAS PARS DEFECT AT L5 RIGHT AMITA FULLER 04/21/2017 8:26:52 AM > BILATERAL NOTES: CONSIDER INCREASING GABAPENTIN ,FACET JOINT INJECTION MATERIAL WAS PRINTED,FACET JOINT INJECTION: YOUR EXPERIENCE MATERIAL WAS PRINTED. PREVENTIVE MEDICINE PAIN CLINIC TEACHING: PROCEDURE TEACHING PRE-PROCEDURE TEACHING DONE AND INFORMATION GIVEN. QUESTIONS ANSWERED AND PATIENT VERBALIZES UNDERSTANDING.. PROCEDURE CODES FA211 ESTABILISHED PATIENT [facility] FACILITY CHARGE DISPOSITION & COMMUNICATION FOLLOW UP AFTER INJECTION (REASON: RIGHT THERAPEUTIC LUMBAR FACET BLOCK AT L4-5, L5-S1. HAS PARS DEFECT AT L5 RIGHT) ELECTRONICALLY SIGNED BY AGGIE NELSON ON 04/21/2017 AT 08:28 AM EDT DISCLAIMER : THIS IS A VISIT SUMMARY EXTRACTED FROM THE [employer] CHART. IT IS NOT A COPY OF THE [employer] PROGRESS NOTE. VARGAS
== END ==
LOC: M PAIN 10:20
PROVIDERS: ATTEND Nurse Practitioner Family
DX: G89.29 Other chronic pain (principal); M54.5 Low back pain; M46.1 Sacroiliitis, not elsewhere classified; M47.26 Other spondylosis with radiculopathy, lumbar region; I10 Essential (primary) hypertension; J45.909 Unspecified asthma, uncomplicated; E78.5 Hyperlipidemia, unspecified; Z91.040 Latex allergy status; Z79.899 Other long term (current) drug therapy

== ENCOUNTER → 2017-05-18 | Outpatient (CLI) | payer OTHER ==
--- NOTE | 2017-05-18 23:36 | ECWPNPC ---
PATIENT NAME: DAYANA MARTINEZ : 1955 GENDER: FEMALE VISIT DATE: 05/18/2017 DISCHARGE DATE: 05/18/17 1504 VISIT LOCKED DATE TIME: PHYSICIAN: AMITA FULLER RESOURCE: AMITA FULLER REASON FOR APPOINTMENT 1. DISCUSS INTERVENTIONS HISTORY OF PRESENT ILLNESS HISTORY OF PRESENT ILLNESS: PAIN THE PATIENT DESCRIBES THE PAIN... FALL RISK SCREENING: SCREENING :NO FALLS IN THE PAST YEAR TODAY'S VISIT: NOTES: RATES PAIN TODAY 7/10 DESCRIBES PAIN CONSTANT, ACHING, BURNING, SHARP AND STABBING AND SHOOTING. PAIN IS CENTERED IN LOW BACK AND PELVIS, AND IN THE RIGHT LATERAL RIBS. HAS RECENT SPONTANEOUS FRACTURE OF RIBS RIGHT SIDE WITH COUGH IN AREA WHERE BONE METASTASIS IS PRESENT. NEEDED MORE PAIN MEDS TO CONTROL PAIN BUT ONCOLOGIST DR ESPINOZA WAS UNABLE T OBTAIN THIS FROM HER INSURANCE AND HAS US AT THE PAIN CLINIC TO TAKE OVER ALL HER PAIN MEDS. CURRENT DOSING OF HYDROCODONE AT 7.5 /325 3 TABS 3 TIMES PER DAY HAS NOT BEEN ADEQUETE AND IS AN UNEXCEPTABLE DOSE OF ACETEMINOPHEN. HAS BEEN FOUND TO HAVE BLOCKAGE ON AORTA AND IS SCHEDULED FOR PROCEDURE AT [facility] IN [place] ON 05/24/14. CURRENT MEDICATIONS TAKING CALCIUM + D 49364-357 MG-UNIT TABLET 1 TABLET WITH FOOD ORALLY ONCE A DAY TAKING SYMBICORT 80-4.5 MCG/ACT AEROSOL 2 PUFFS INHALATION TWICE A DAY TAKING HYDROCODONE-ACETAMINOPHEN 7.5-325 MG TABLET 1-2 TABLET NEEDED ORALLY EVERY 6 HRS TAKING BLOOD PRESSURE MONITOR - MISCELLANEOUS DIRECTED ONCE DAILY TAKING WHEELCHAIR - MISCELLANEOUS DIRECTED DX- BACK PAIN/HIP PAIN/METASTATIC BREAST CANCER TAKING VENTOLIN HFA 108 (90 BASE) MCG/ACT AEROSOL SOLUTION 2 PUFFS NEEDED INHALATION EVERY 4 HRS TAKING DULOXETINE HCL 30 MG CAPSULE DELAYED RELEASE PARTICLES 1 CAPSULE ORALLY TWICE A DAY TAKING BIOTIN 5000 5 MG CAPSULE 1 CAPSULE ORALLY ONCE A DAY TAKING GABAPENTIN 300 MG CAPSULE 1 CAPSULE ORALLY THREE TIMES A DAY TAKING ECHINACEA 400 MG CAPSULE ORALLY DAILY TAKING XELODA 500 MG TABLET ORALLY BID TAKING OMEPRAZOLE 40 MG CAPSULE DELAYED RELEASE 1 CAPSULE ORALLY ONCE A DAY TAKING MELOXICAM 15 MG TABLET 1 TABLET ORALLY ONCE A DAY NOT-TAKING PREMARIN 0.625 MG TABLET 1 TABLET ORALLY DAILY NOT-TAKING MORPHINE SULFATE 30 MG TABLET EXTENDED RELEASE 12 HOUR 1 TABLET NEEDED ORALLY TWICE A DAY NEEDED NOT-TAKING AMLODIPINE 10 MG TABLET 1/2 TAB ORALLY ONCE A DAY NOT-TAKING METHOCARBAMOL 500 MG TABLET 2 TABLETS ORALLY EVERY 6HRS/PRN NOT-TAKING NORTRIPTYLINE HCL 25 MG CAPSULE 2 CAPSULE ORALLY ONCE A DAY QHS NOT-TAKING MULTIVITAMINS TABLET DIRECTED ORALLY NOT-TAKING VITAMIN C 500 MG CAPSULE ORALLY NOT-TAKING VITAMIN E 400 UNIT CAPSULE 1 CAPSULE ORALLY ONCE A DAY MEDICATION LIST REVIEWED AND RECONCILED WITH THE PATIENT PAST MEDICAL HISTORY HTN BREAST CANCER, METASTESIZED TO BONES OVARIAN CYSTS ASTHMA HYPERLIPIDEMIA MULTINODULAR GOITER ALLERGIES LATEX (FOR ALLERGY USE ONLY): RASH: ALLERGY MORPHINE: HALLUCINATIONS: SIDE EFFECTS FENTANYL: EXCESSIVE SLEEPINESS: SIDE EFFECTS SURGICAL HISTORY HYSTERECTOMY 1977 BILATERAL MASTECTOMY 2004 BILATERAL OVERY REMOVAL 2005 HOSPITALIZATION/MAJOR DIAGNOSTIC PROCEDURE SURGICALY RELATED REVIEW OF SYSTEMS REVIEWED BY: PROVIDER: AMITA ZAMAN . CONSTITUTIONAL: ANY CHANGE IN YOUR MEDICAL CONDITION? YES, 2 BROKEN RIBS ON RIGHT. PT STATES DX OF BONE CA 2016 . CHILLS NO . FEVER NO . INFECTION: DO YOU HAVE NEW INFECTIONS? NO . DO YOU HAVE HISTORY OF MRSA? NO . MUSCULOSKELETAL: ANY NEW PATTERNS OF PAIN OR NUMBNESS? YES, PT STATES SHE HAS 2 BROKEN RIBS ON RIGHT SIDE . GASTROENTEROLOGY: BOWEL INCONTINENCE DENIES, INTERMITTANT CONSTIPATION . ANY NEW CHANGE IN BOWEL CONTROL? NO . GENITOURINARY: ANY NEW CHANGE IN BLADDER CONTROL? NO . IS THERE A CHANCE YOU COULD BE ? NO . HEMATOLOGY/LYMPH: DO YOU TAKE ANY BLOOD THINNERS? (FOR EXAMPLE- COUMADIN, PLAVIX, AGGRENOX, PLATEL, PRADAXA, OR XARELTO) NO . WHEN WAS YOUR LAST DOSE? DATE: TIME: . NEUROLOGY: HAVE YOU FALLEN IN THE PAST 6 MONTHS? NO . ANY NEW EXTREMITY NUMBNESS OR WEAKNESS? NO . CARDIOLOGY: DO YOU HAVE A PACEMAKER OR DEFIBRILLATOR? NO . CHEST PAIN PATIENT DENIES . CLAUDICATION MINIMAL EXERTION WITH PAIN AND HEAVINESS IN THE LEGS . RESPIRATORY: HAVE YOU BEEN SICK IN THE PAST WEEK? NO . FEVER NO . FLU LIKE SYMPTOMS? NO . COUGH YES - NO PRODUCTION . INTEGUMENTARY: DO YOU HAVE ANY RASHES OR OPEN SORES? NO . ALLERGIC/IMMUNO: ARE YOU ALLERGIC TO SHELLFISH OR IV DYE? NO . ANY NEW ALLERGIES? NO . PSYCHIATRIC: DO YOU HAVE THOUGHTS OF HURTING YOURSELF OR SOMEONE ELSE? NO . ARE YOU ABUSED, NEGLECTED, OR IN AN UNSAFE ENVIRONMENT? NO . ENDOCRINOLOGY: ARE YOU DIABETIC? NO . OTHER: DO YOU NEED ANY PRESCRIPTIONS? NO . IF YES, PLEASE LIST: ____ . ANY NEW PROBLEMS WITH YOUR MEDICATIONS? NO . WHEN DID YOU LAST EAT? ____ . WHEN DID YOU LAST DRINK? ____ . WHAT DID YOU LAST DRINK? ____ . NAME OF PERSON DRIVING YOU HOME? ____ . DO YOU HAVE ANY OTHER QUESTIONS OR CONCERNS NO . VITAL SIGNS WT 174 LBS, HT 5'5.5", BMI 28.51 INDEX, BP 145/75 MM HG, HR 96 /MIN, RR 16 /MIN, TEMP 97.4 F, OXYGEN SAT % 96%, SAFE IN ENV? (Y/N) Y, NA INITIALS PA 13:29, REVIEWED BY: CLEMENT. EXAMINATION GENERAL EXAMINATION: PSYCHALERT , ORIENTED X 3 , APPEARS UNCOMFORTABLE. LUNGS:CLEAR TO AUSCULTATION BILATERALLY, DECREASED AIR ENTRY AT BASES. HEART:HEART RATE REGULAR. MUSCULOSKELETAL:POINT TENDERNESS WITH PALPATION OVER LUMBAR SPINOUS PROCESSES AND ACROSS LUMOSACRAL AXIS. TRIGGER POINTS AND TIGHT FIBROUS BANDS IDENTIFIED ACROSS THE SACRUM. SOME WEAKNESS NOTEED WITH RIGHT QUADRICEP FLEXION. NO FOOT DROP NOTED. SLOW TO RISE TO SYANDING POSITION. POSTURE STOOPED. GAIT WIDEBASED AND SLOW. CANE USED FOR BALANCE. EQUISITE TENDERNESS OVER RIGHT LATERAL RIBS AT 7TH, 8 AND 9TH RIB LEVEL. DIAGNOSTIC TESTS REVIEWEDNUCLEAR MED BONE SCAN 04/07/17, XRAY OF LUMBAR SPINE 01/07/17 AND MRI OF LUMBAR SPINE 02/01/16 REVIEWED AND DISCUSSED WITH PATIENT. NEW RIB FILMS FROM 05/06/17 REVIEWED WITH PATIENT AND HER . 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 NARCOTIC AGREEMENT TODAYUTOX TODAYSTOP HYDROCODONE. DISCUSSED PREVIOUSLY TRIALED MEDS WHICH HAVE INCLUDED NSAIDS, CODEINE (MIN EFFECT), TRAMADOL (NO EFFECT), MORPHINE( SEVERE HALLUCINATIONS), FENTANYL (EXCESSIVE FATIGUE), PERCOCET (EFFECTIVE), HAS NEVER TRIAL HYDROMORPHONE, OXYMORPHONE, BUTRANS PATCH, NUCYNTA, OR METHADONE. CLINICAL NOTES: RISKS AND BENEFITS OF NARCOTIC/OPIOD MEDICATIONS WERE REVIEWED WITH PATIENT - THIS INCLUDES BUT IS NOT LIMITED TO RISK OF DEPENDANCE/DEVELOPMENT OF ADDICTION, MOOD DISTURBANCE AND DEPRESSION, OSTEOPOROSIS, HORMONAL AND LABIDAL CHANGES, RESPIRATORY DEPRESSION AND . PATIENT IS ADVISED NOT TO DRIVE WHILE ON THESE MEDICATIONS, ISTOP REGISTRY REVIEWED AND DEMNOSTRATES COMPLLIANCE. BRINGS IN MEDICATIONS WHICH IS APPROPRIATE FOR WHAT WAS DISPENSED. PROCEDURE CODES FA211 ESTABILISHED PATIENT [facility] FACILITY CHARGE DISPOSITION & COMMUNICATION FOLLOW UP 26-28 DAYS (REASON: BACK PAIN, MED MANAGEMENT) ELECTRONICALLY SIGNED BY AGGIE NELSON ON 05/18/2017 AT 06:21 PM EDT DISCLAIMER : THIS IS A VISIT SUMMARY EXTRACTED FROM THE [employer] CHART. IT IS NOT A COPY OF THE [employer] PROGRESS NOTE. MTDD
== END ==
LOC: M PAIN 13:20
PROVIDERS: ATTEND Nurse Practitioner Family
DX: G89.29 Other chronic pain (principal); M54.5 Low back pain; M46.1 Sacroiliitis, not elsewhere classified; M47.26 Other spondylosis with radiculopathy, lumbar region; I10 Essential (primary) hypertension; E78.5 Hyperlipidemia, unspecified; J45.909 Unspecified asthma, uncomplicated; Z91.040 Latex allergy status; Z88.5 Allergy status to narcotic agent; Z85.830 Personal history of malignant neoplasm of bone